=== PATIENT | female | born 1965 | race Caucasian/White ===

== ENCOUNTER 2022-04-27 13:10 | Emergency (ER) | payer OTHER ==
[~2022-04-27] VITALS: Ht 172.7 cm; Wt 110.4 kg
[2022-04-27 13:10] VITALS: BP 153/80
[2022-04-27] MEDS ORDERED: OMEP-173 (13:50)
[2022-04-27] MEDS ORDERED: TOPI25TA10 (13:50)
[2022-04-27] MEDS ORDERED: ALBU8.5H (13:50)
[2022-04-27] MEDS ORDERED: METF-838 (13:50)
[2022-04-27] MEDS ORDERED: ATOR40TA75 (13:50)
[2022-04-27] MEDS ORDERED: LOSA50TA28 (13:50)
[2022-04-27] MEDS ORDERED: LEVO137T2 (13:50)
== END 2022-04-27 15:17 | disposition left against medical advice (07) ==
LOC: M ED 13:10
DX: Z53.21 Procedure and treatment not carried out due to patient leaving prior to being seen by health care provider (principal)